=== PATIENT | male | born 1935 | race Caucasian/White ===

== ENCOUNTER 2017-05-21 18:55 | Inpatient (IN) | payer MEDICARE, OTHER ==
[~2017-05-21] VITALS: Ht 182.9 cm; Wt 71.2 kg
[~2017-05-21 18:55] MED LIST: ARICEPT10 M2 PO; ASPIRIN EC81 MG PO; MUPIROCIN22 G2 TP; NORVASC5 M2 PO; PREDNISONE20 M1 PO; VITAMIN B-121000 MC1 PO; VITAMIN D35000 UNI3 PO
[2017-05-21] MEDS ORDERED: IPRAT-ALBUT 0.5-3 ML INH (19:29)
[2017-05-21] MEDS ORDERED: TYLENOL325 M2 PO (19:29)
[2017-05-21] MEDS ORDERED: NORVASC2.5 M1 PO (19:29)
[2017-05-21] MEDS ORDERED: LIPITOR40 M1 PO (19:30)
[2017-05-21] MEDS ORDERED: ELIQUIS5 M1 PO (19:30)
[2017-05-21] MEDS ORDERED: BROVANA15 MCG/22 INH (19:30)
[2017-05-21] MEDS ORDERED: BANATROL PLUS1 EACH PO (19:30)
[2017-05-21] MEDS ORDERED: PULMICORT0.5 MG/22 INH (19:31)
[2017-05-21] MEDS ORDERED: BISCOLAX10 MG PR (19:31)
[2017-05-21] MEDS ORDERED: VITAMIN D31000 UNI3 PO (19:32)
[2017-05-21] MEDS ORDERED: B-121000 MC2 PO (19:32)
[2017-05-21] MEDS ORDERED: ENEMEEZ283 MG/5 M PR (19:33)
[2017-05-21] MEDS ORDERED: ARICEPT10 M2 PO (19:33)
[2017-05-21] MEDS ORDERED: NOVOLOG100 UNITS/ (19:34)
[2017-05-21] MEDS ORDERED: MUCINEX600 M1 PO (19:34)
[2017-05-21] MEDS ORDERED: LEVEMIR100 UNITS/ SC (19:35)
[2017-05-21] MEDS ORDERED: MILK OF MAGNESIA PO (19:36)
[2017-05-21] MEDS ORDERED: KEPPRA500 M3 PO (19:36)
[2017-05-21] MEDS ORDERED: ALOE VESTA (19:38)
[2017-05-21] MEDS ORDERED: MIDODRINE HCL5 M1 PO (19:38)
[2017-05-21] MEDS ORDERED: DELTASONE20 MG PO (19:39)
[2017-05-21] MEDS ORDERED: BACTROBAN15 G1 TP (19:39)
[2017-05-21] MEDS ORDERED: OCEAN104 ML (19:40)
[2017-05-21] MEDS ORDERED: TRANSDERM-SCOP1 EACH TD (19:40)
[2017-05-21] MEDS ORDERED: PROPRANOLOL HCL10 M1 PO (19:40)
[2017-05-21 20:41] LABS: ABG CO2 ARTERIAL 28 mmol/L (21-27); ARTERIAL BLD GAS O2 SATURATION 94 % (95-98); ARTERIAL BLOOD GAS PCO2 35 mmHg (32-45); ARTERIAL PO2 65 mmHg (70-100); BICARBONATE 27 mmol/L (21-28); BLOOD GAS BASE EXCESS 4 mM/L (-/+3)
[2017-05-21 20:43] LABS: BASO % 0.1 % (0-2); HCT-HEMATOCRIT 27.9 % (36.0-53.5); HGB-HEMOGLOBIN 9.2 gm/dl (13.5-17.0); IMMATURE GRANULOCYTES ABSOLUTE 0.36 tho/cmm (0-0.03); IMMATURE GRANULOCYTES PERCENT 1.6 % (0-0.3); LYMPH % 7.1 % (20-45); LYMPH ABSOLUTE COUNT 1.6 tho/cmm (0.8-4.5); MCH (MEAN CORPUSCULAR HGB) 32.1 pg (28.0-32.0); MCV (MEAN CELL VOLUME) 97.2 fl (82.0-96.0); MEAN PLATELET VOLUME 10.6 cmc (9.4-12.4); MONO % 5.8 % (0-12); MONOCYTE ABSOLUTE COUNT 1.3 tho/cmm (0.0-1.2); NEUTROPHIL ABSOLUTE COUNT 19.3 tho/cmm (1.6-8.0); NEUTROPHIL-AUTOMATED 19.3 tho/cmm (1.6-8.0); NEUTROPHILS % 85.4 % (40-80); PLATELET COUNT 235 tho/cmm (150-450); RED BLOOD COUNT 2.87 mil/cmm (4.40-5.70); RED CELL DISTRIBUTION WIDTH 15.9 % (12.4-16.4); WHITE BLOOD COUNT 22.6 tho/cmm (4.0-10.0)
[2017-05-21 20:47] LABS: INR 1.1 INR (0.9-1.1); PROTHROMBIN TIME 12.9 SECONDS (9.0-13.6)
[2017-05-21 20:55] LABS: URINE BILIRUBIN NEGATIVE (NEG); URINE BLOOD NEGATIVE (NEG); URINE GLUCOSE (UA) NEGATIVE (NEG); URINE KETONE NEGATIVE (NEG); URINE LEUKOCYTE ESTERASE NEGATIVE (NEG); URINE NITRITE NEGATIVE (NEG); URINE PROTEIN NEGATIVE (NEG)
[2017-05-21 20:56] LABS: URINE COLOR YELLOW
[2017-05-21 20:57] LABS: URINE APPEARANCE CLEAR
[2017-05-21 21:06] LABS: ALB/GLOB RATIO 0.7 (0.8-2.0); ALBUMIN 2.2 g/dl (3.5-5.0); ALKALINE PHOSPHATASE 71 U/L (33-138); ALT/SGPT 74 U/L (12-78); ANION GAP 8 mmol/L (0-20); AST/SGOT 37 U/L (10-40); BILIRUBIN,TOTAL 0.4 mg/dl (0.0-1.5); BLOOD UREA NITROGEN 43 mg/dl (6-24); CALCIUM 8.5 mg/dl (8.5-10.5); CARBON DIOXIDE-VENOUS 29 mmol/L (22-32); CHLORIDE 109 mmol/l (96-110); CREATININE 1.16 mg/dl (0.60-1.30); GLUCOSE 129 mg/dL (70-110); POTASSIUM 4.9 mmol/L (3.7-5.1); SODIUM 141 mmol/L (135-145); eGFR VALUE FOR BLACK 67 mL/Min
[2017-05-21 21:16] LABS: PROCALCITONIN 0.17 ng/ml (0.05-0.09)
[2017-05-22 03:37] LABS: BASO % 0.1 % (0-2); EOS % 0.7 % (0-7); EOSINOPHIL ABSOLUTE COUNT 0.1 tho/cmm (0.0-0.7); HCT-HEMATOCRIT 27.5 % (36.0-53.5); HGB-HEMOGLOBIN 9.4 gm/dl (13.5-17.0); IMMATURE GRANULOCYTES ABSOLUTE 0.07 tho/cmm (0-0.03); IMMATURE GRANULOCYTES PERCENT 0.4 % (0-0.3); LYMPH % 8.1 % (20-45); LYMPH ABSOLUTE COUNT 1.4 tho/cmm (0.8-4.5); MCHC MEAN CORPUSCULAR HGB CONC 34.2 % (32.0-36.0); MEAN PLATELET VOLUME 11.1 cmc (9.4-12.4); MONO % 7.8 % (0-12); MONOCYTE ABSOLUTE COUNT 1.3 tho/cmm (0.0-1.2); NEUTROPHIL ABSOLUTE COUNT 14.2 tho/cmm (1.6-8.0); NEUTROPHIL-AUTOMATED 14.2 tho/cmm (1.6-8.0); NEUTROPHILS % 82.9 % (40-80); PLATELET COUNT 175 tho/cmm (150-450); RED BLOOD COUNT 3.33 mil/cmm (4.40-5.70); RED CELL DISTRIBUTION WIDTH 16.7 % (12.4-16.4); WHITE BLOOD COUNT 17.2 tho/cmm (4.0-10.0)
[2017-05-22 03:54] LABS: ALB/GLOB RATIO 0.4 (0.8-2.0); ALBUMIN 2.2 g/dl (3.5-5.0); ALT/SGPT 65 U/L (12-78); ANION GAP 17 mmol/L (0-20); CALCIUM 7.2 mg/dl (8.5-10.5); CARBON DIOXIDE-VENOUS 21 mmol/L (22-32); CHLORIDE 106 mmol/l (96-110); GLUCOSE 93 mg/dL (70-110); POTASSIUM 4.7 mmol/L (3.7-5.1); SODIUM 139 mmol/L (135-145)
[2017-05-22 04:11] LABS: MCH (MEAN CORPUSCULAR HGB) 28.2 pg (28.0-32.0); MCV (MEAN CELL VOLUME) 82.6 fl (82.0-96.0)
[2017-05-22 04:20] LABS: ALKALINE PHOSPHATASE 323 U/L (33-138); AST/SGOT 167 U/L (10-40); BILIRUBIN,TOTAL 1.4 mg/dl (0.0-1.5); BLOOD UREA NITROGEN 67 mg/dl (6-24); CREATININE 3.09 mg/dl (0.60-1.30); eGFR VALUE FOR BLACK 20 mL/Min
--- NOTE | 2017-05-23 15:59 | NUR ---
Called [facility] with patient report. Let [facility] know pts family wishes to keep his O2 on at 3l [employer] as that is the level he had at home. Pt does not seem umcomfortable from the O2. Spoke with Rani at the [facility]. Report given on general status, CT, mental status, that hospice nurse will bring meds to [facility]. Much support to family during the day.
== END 2017-05-23 16:33 | disposition hospice, home (50) | DRG 189 ==
LOC: EDMED → EDBD 18:55 → CCU 22:40 → 5WE 22:40 → EMR2 22:40 → CCU 23:59 → 5WE 05-22 12:28
PROVIDERS: Emergency Medicine; ADMIT Internal Medicine
PROC: 0W9B30Z Drainage of Left Pleural Cavity with Drainage Device, Percutaneous Approach (ICD-10-PCS; principal; 2017-05-21)
DX: J96.21 Acute and chronic respiratory failure with hypoxia (principal); J18.9 Pneumonia, unspecified organism; G93.40 Encephalopathy, unspecified; F03.90 Unspecified dementia, unspecified severity, without behavioral disturbance, psychotic disturbance, mood disturbance, and anxiety; I48.91 Unspecified atrial fibrillation; J84.10 Pulmonary fibrosis, unspecified; N18.3 Chronic kidney disease, stage 3 (moderate); J93.9 Pneumothorax, unspecified; Z66 Do not resuscitate; Z79.01 Long term (current) use of anticoagulants; Z86.73 Personal history of transient ischemic attack (TIA), and cerebral infarction without residual deficits; I12.9 Hypertensive chronic kidney disease with stage 1 through stage 4 chronic kidney disease, or unspecified chronic kidney disease; Z79.4 Long term (current) use of insulin; Z74.01 Bed confinement status; Z51.5 Encounter for palliative care; D63.1 Anemia in chronic kidney disease
CPT/HCPCS: C1751; J2543; J3370; J7030; J7512; P9612